=== PATIENT | female | born 1995 ===

== ENCOUNTER 2016-11-30 21:53 | Emergency (ER) | payer OTHER ==
[2016-11-30 22:12] VITALS: TEMP 98.8; O2SAT 99
--- NOTE | 2016-11-30 22:47 | ED PDOC ---
Arrival/HPI - General Chief Complaint: Back Pain Time Seen by Provider: 11/30/16 22:03 Historian: Patient - History of Present Illness Narrative History of Present Illness (Text): 11/30/16 22:43 Javid Schmitz is a 21 year old female who presents to the emergency department complaining of lower back pain for past few hours. Patient notes that she almost passed out while bending down to product picker something off the floor. Reports that pain is worsened with movement. Patient had a recent appendectomy a month ago at [facility] [place] without any complications. Denies any fever, chills, headache, dizziness, chest pain, shortness of breath, nausea, vomiting, diarrhea, or any other complaints at this time. Time/Duration: 4-6 hours Symptom Onset: Gradual Symptom Course: Worsening Severity Level: Mild Activities at Onset: Light Past Medical History - Provider Review Nursing Documentation Reviewed: Yes - Hematological/Oncological Hx Sickle Cell Disease: Yes (SICKLE CELL TRAIT) - Psychiatric Hx Anxiety: Yes Hx Depression: Yes Hx Post Traumatic Stress Disorder: Yes Hx Substance Use: No - Surgical History Hx Appendectomy: Yes - Anesthesia Hx Anesthesia: Yes Hx Anesthesia Reactions: No Hx Malignant Hyperthermia: No Family/Social History - Physician Review Nursing Documentation Reviewed: Yes Family/Social History: No Known Family HX Smoking Status: Never Smoked Hx Alcohol Use: No Hx Substance Use: No Allergies/Home Meds Allergies/Adverse Reactions: Allergies No Known Allergies Allergy (Verified 11/30/16 22:12) Review of Systems - Physician Review All systems were reviewed & negative as marked: Yes - Review of Systems Constitutional: Normal. absent: Fatigue, Fevers Eyes: Normal. absent: Vision Changes Respiratory: Normal. absent: SOB, Cough, Sputum Cardiovascular: Normal. absent: Chest Pain, Palpitations Gastrointestinal: Normal. absent: Abdominal Pain, Diarrhea, Nausea, Vomiting Genitourinary Female: Normal. absent: Dysuria, Frequency, Hematuria Musculoskeletal: Back Pain. absent: Neck Pain Skin: Normal Psychiatric: Normal Physical Exam Vital Signs Reviewed: Yes Vital Signs Temp Pulse Resp BP Pulse Ox 12/01/16 02:20 75 17 117/65 99 12/01/16 01:09 80 18 104/66 99 11/30/16 21:54 98.8 F 81 18 107/71 99 Temperature: Afebrile Blood Pressure: Normal Pulse: Regular Respiratory Rate: Normal Appearance: Positive for: Well-Appearing, Non-Toxic, Comfortable Pain Distress: None Mental Status: Positive for: Alert and Oriented X 3 - Systems Exam Head: Present: Atraumatic, Normocephalic Pupils: Present: PERRL Extroacular Muscles: Present: EOMI Conjunctiva: Present: Normal Respiratory/Chest: Present: Clear to Auscultation, Good Air Exchange. No: Respiratory Distress, Accessory Muscle Use Cardiovascular: Present: Regular Rate and Rhythm, Normal S1, S2. No: Murmurs Abdomen: Present: Normal Bowel Sounds. No: Tenderness, Distention, Peritoneal Signs, Rebound, Guarding Back: Present: Pain with Leg Raise (bilateral). No: CVA Tenderness, Midline Tenderness, Paraspinal Tenderness Upper Extremity: Present: Normal Inspection. No: Cyanosis, Edema Lower Extremity: Present: Normal Inspection. No: Edema Neurological: Present: GCS=15, CN II-XII Intact, Speech Normal, Motor Func Grossly Intact, Normal Sensory Function Skin: Present: Warm, Dry, Normal Color. No: Rashes Psychiatric: Present: Alert, Oriented x 3, Normal Insight, Normal Concentration Medical Decision Making ED Course and Treatment: 11/30/16 22:49 Impression: A 21 year old female who presents to the emergency department complaining of back pain for past few hours. Plan: -- CT abdomen/pelvis -- EKG -- Labs -- Drug Screen -- Toradol -- HCG -- Urine Culture -- Urinalysis -- Reassess and disposition Progress Notes: EKG reviewed by me: NSR @ 74 bpm. Normal [place]. Normal interval. CT abdomen pelvis results reviewed: IMPRESSION: No CT evidence of urolithiasis. Possible RIGHT ovarian cyst. Suggest ultrasound. 12/01/16 02:41 On re-evaluation, patient feels better and is in no acute distress. I have discussed the results and plan with the patient, who expresses understanding. Patient in agreement with plan to be discharged home. Patient is stable for discharge. Patient was instructed to follow up with physician or return if symptoms worsen or new concerning symptoms arise. Re-evaluation Time: 02:27 Reassessment Condition: Re-examined, Improved - Lab Interpretations Lab Results: 11/30/16 22:35 11/30/16 22:35 Lab Results 11/30/16 22:35: Urine Color Light yellow, Urine Appearance Sl cloudy, Urine pH 6.0, Ur Specific [place] 1.020, Urine Protein Negative, Urine Glucose (UA) Negative, Urine Ketones Negative, Urine Blood Moderate H, Urine Nitrate Negative , Urine Bilirubin Negative, Urine Urobilinogen 1.0 H, Ur Leukocyte Esterase Small H, Urine RBC 5 - 10, Urine WBC 5 - 10, Ur Epithelial Cells 0 - 2, Urine Bacteria Few, Urine HCG, Qual Negative 11/30/16 22:35: Urine Opiates Screen Negative, Urine Methadone Screen Negative, Ur Barbiturates Screen Negative, Ur Phencyclidine Scrn Negative, Ur Amphetamines Screen Negative, U Benzodiazepines Scrn Negative, U Oth Cocaine Metabols Negative, U Cannabinoids Screen Negative 11/30/16 22:35: Sodium 136, Potassium 4.4, Chloride 103, Carbon Dioxide 28, Anion Gap 9 L, BUN 13, Creatinine 0.8, Est GFR ( Amer) > 60, Est GFR (Non -Af Amer) > 60, Random Glucose 88, Calcium 8.9, Total Bilirubin 0.5, AST 36, ALT 43, Alkaline Phosphatase 59, Troponin I < 0.01, Total Protein 7.6, Albumin 3.9, Globulin 3.7, Albumin/Globulin Ratio 1.1 11/30/16 22:35: WBC 6.6, RBC 4.25, Hgb 12.4, Hct 33.8 L, MCV 79.5 L, MCH 29.2, MCHC 36.7, RDW 14.1, Plt Count 323, MPV 9.3, Gran % 56.9, Lymph % (Auto) 30.5, [place] % (Auto) 10.5 H, Eos % (Auto) 1.8, Baso % (Auto) 0.3, Gran # 3.76, Lymph # 2.0, [place] # 0.7 H, Eos # 0.1, Baso # 0.02 I have reviewed the lab results: Yes - RAD Interpretation Narrative RAD Interpretations (Text): 12/01/16 02:40 EXAM: CT Abdomen and Pelvis Without Intravenous Contrast FINDINGS: Lower thorax: Minimal atelectasis/scarring. ABDOMEN: Liver: Unremarkable. Gallbladder and bile ducts: No calcified stones. No ductal dilation. Pancreas: Unremarkable. No ductal dilation. Spleen: No splenomegaly. Adrenals: No mass. Kidneys and ureters: No renal calculi. No hydronephrosis. Stomach and bowel: No definite mural thickening. No obstruction. Appendix: Appendectomy. PELVIS: Bladder: Unremarkable. No stones. Reproductive: Apparent 2.6 x 2.1 x 2.7 cm hypodense lesion within RIGHT adnexal region. ABDOMEN and PELVIS: Bones/joints: No acute fracture. Soft tissues: Mild soft tissue thickening along umbilicus. Vasculature: Unremarkable. No abdominal aortic aneurysm. Lymph nodes: No pathologically enlarged lymph nodes. IMPRESSION: 1. No CT evidence of urolithiasis. 2. Possible RIGHT ovarian cyst. Suggest ultrasound. 3. Incidental/non-acute findings are described above. Radiology Orders: 11/30/16 23:47 ABD & PELVIS W/O PO OR IV CONT [CT] Stat Seafood Packer: Radiologist - EKG Interpretation Interpreted by ED Physician: Yes Type: 12 lead EKG - Medication Orders Current Medication Orders: Discontinued Medications Ketorolac Tromethamine (Toradol) 30 mg IVP ONCE ONE Stop: 11/30/16 22:53 Last Admin: 11/30/16 23:31 Dose: 30 mg - Scribe Statement The provider has reviewed the documentation as recorded by the Sade Lindquist Provider Attestation: Provider Scribe Attestation: All medical record entries made by the Sade were at my direction and personally dictated by me. I have reviewed the chart and agree that the record accurately reflects my personal performance of the history, physical exam, medical decision making, and the department course for this patient. I have also personally directed, reviewed, and agree with the discharge instructions and disposition. Disposition/Present on Arrival - Present on Arrival Any Indicators Present on Arrival: No History of DVT/PE: No History of Uncontrolled Diabetes: No Urinary Catheter: No History of Decub. Ulcer: No History Surgical Site Infection Following: None - Disposition Have Diagnosis and Disposition been Completed?: Yes Diagnosis: Back pain Disposition: HOME/ ROUTINE Disposition Time: 02:27 Condition: GOOD Discharge Instructions (ExitCare): Acute Low Back Pain (ED) Prescriptions: Cyclobenzaprine [Cyclobenzaprine HCl] 10 mg PO TID #21 tab Naproxen [Naprosyn Tab] 375 mg PO BID #12 tab
[2016-11-30 23:34] LABS: ADD MANUAL DIFF? NO
[2016-11-30 23:38] LABS: BASO # 0.02 K/mm3 (0.0-2.0); BASO % 0.3 % (0.0-3.0); EOS # 0.1 (0.0-0.7); EOS % 1.8 % (1.5-5.0); GRAN # 3.76 (1.4-6.5); GRAN % 56.9 % (50.0-68.0); HEMATOCRIT 33.8 % (36.0-48.0); LYMPH % 30.5 % (22.0-35.0); MEAN CELL VOLUME 79.5 fL (80.0-105.0); MEAN CORPUSCULAR HEMOGLOBIN 29.2 pg (25.0-35.0); MEAN CORPUSCULAR HGB CONC 36.7 g/dl (31.0-37.0); MEAN PLATELET VOLUME 9.3 fl (7.0-11.0); MONO # 0.7 (0.1-0.6); MONO % 10.5 % (1.0-6.0); PLATELET COUNT 323 10^3/uL (120.0-450.0); RED CELL DISTRIBUTION WIDTH 14.1 % (11.5-14.5); URINE BILIRUBIN NEGATIVE (NEGATIVE); URINE BLOOD MODERATE (NEGATIVE); URINE GLUCOSE (UA) NEGATIVE (NEGATIVE); URINE KETONE NEGATIVE (NEGATIVE); URINE LEUKOCYTE ESTERASE SMALL Leu/uL (NEGATIVE); URINE PROTEIN NEGATIVE mg/dL (<30 mg/dL); WHITE BLOOD COUNT 6.6 10^3/ul (4.5-11.0)
[2016-11-30 23:43] LABS: URINE APPEARANCE SL CLOUDY (CLEAR); URINE COLOR LIGHT YELLOW (YELLOW)
[2016-11-30 23:51] LABS: ALB/GLOB RATIO 1.1 (1.1-1.8); ALKALINE PHOSPHATASE 59 U/L (38-133); ALT/SGPT 43 U/L (7-56); AST/SGOT 36 U/L (15-39); BILIRUBIN,TOTAL 0.5 mg/dL (0.2-1.3); BLOOD UREA NITROGEN 13 mg/dL (7-21); CALCIUM 8.9 mg/dL (8.4-10.5); CARBON DIOXIDE 28 mmol/L (21-33); CHLORIDE 103 mmol/L (98-107); GFR AFRICAN-AMERICAN > 60; GLUCOSE,RANDOM 88 mg/dL (70-110); POTASSIUM 4.4 mmol/L (3.6-5.0); SODIUM 136 mmol/L (132-148); TOTAL PROTEIN 7.6 g/dL (5.8-8.3)
[2016-11-30 23:53] LABS: URINE EPITHELIAL CELLS 0 - 2 /hpf (0-5)
[2016-11-30 23:54] LABS: URINE BACTERIA FEW (NEG)
[2016-12-01 00:15] LABS: TROPONIN I < 0.01 ng/mL
--- NOTE | 2016-12-01 01:45 | CT ---
EXAM: CT Abdomen and Pelvis Without Intravenous Contrast CLINICAL HISTORY: 21 years old, female; Pain; Abdominal pain; Flank; Right; Additional info: Rt flank pain TECHNIQUE: Axial computed tomography images of the abdomen and pelvis without intravenous contrast. This CT exam was performed using one or more of the following dose reduction techniques: automated exposure control, adjustment of the mA and/or kV according to patient size, and/or use of iterative reconstruction technique. Coronal and sagittal reformatted images were created and reviewed. COMPARISON: No relevant prior studies available. FINDINGS: Lower thorax: Minimal atelectasis/scarring. ABDOMEN: Liver: Unremarkable. Gallbladder and bile ducts: No calcified stones. No ductal dilation. Pancreas: Unremarkable. No ductal dilation. Spleen: No splenomegaly. Adrenals: No mass. Kidneys and ureters: No renal calculi. No hydronephrosis. Stomach and bowel: No definite mural thickening. No obstruction. Appendix: Appendectomy. PELVIS: Bladder: Unremarkable. No stones. Reproductive: Apparent 2.6 x 2.1 x 2.7 cm hypodense lesion within RIGHT adnexal region. ABDOMEN and PELVIS: Intraperitoneal space: No significant fluid collection. No free air. Bones/joints: No acute fracture. Soft tissues: Mild soft tissue thickening along umbilicus. Vasculature: Unremarkable. No abdominal aortic aneurysm. Lymph nodes: No pathologically enlarged lymph nodes. IMPRESSION: 1. No CT evidence of urolithiasis. 2. Possible RIGHT ovarian cyst. Suggest ultrasound. 3. Incidental/non-acute findings are described above.
[2016-12-01 02:37] VITALS: BP 117/65; PULSE 75; RESP 17
--- NOTE | 2016-12-02 01:44 | CARD ---
APPROVED REPORT EKG Measurement Heart [id number] <Conclusion> Normal sinus rhythm Normal ECG
== END 2016-12-01 02:40 | disposition home or self-care (01) ==
LOC: ED 21:53 → MERGE 21:53 → ED 12-01 02:40
DX: M54.5 Low back pain (principal)
CPT/HCPCS: 74176; 80053; 80324; 80345; 80346; 80349; 80353; 80358; 80361; 81001; 83992; 84484; 84703; 85025; 87086; 93005; 96374; 99283; J1885

== ENCOUNTER 2017-02-15 21:19 | Emergency (ER) | payer OTHER ==
--- NOTE | 2017-02-15 22:52 | ED PDOC ---
Arrival/HPI - General Time Seen by Provider: 02/15/17 22:42 Historian: Patient - History of Present Illness Narrative History of Present Illness (Text): 02/15/17 22:49 Javid Schmitz is a 21 year old female, with a history of appendectomy, presents to the emergency department complaining of lower abdominal pain for past week. Denies any nausea, vomiting or diarrhea. States last menstrual period was a week prior. Denies any vaginal discharge.Mild dysuria. Denies any other complaints at this time. Time/Duration: Other (1 week ) Symptom Onset: Gradual Severity Level: Mild Context: Home Past Medical History - Provider Review Nursing Documentation Reviewed: Yes - Hematological/Oncological Hx Sickle Cell Disease: Yes (SICKLE CELL TRAIT) - Psychiatric Hx Anxiety: Yes Hx Depression: Yes Hx Post Traumatic Stress Disorder: Yes Hx Substance Use: No - Surgical History Hx Appendectomy: Yes - Anesthesia Hx Anesthesia: Yes Hx Anesthesia Reactions: No Hx Malignant Hyperthermia: No Family/Social History - Physician Review Nursing Documentation Reviewed: Yes Family/Social History: No Known Family HX Smoking Status: Never Smoked Hx Alcohol Use: No Hx Substance Use: No Allergies/Home Meds Allergies/Adverse Reactions: Allergies No Known Allergies Allergy (Verified 11/30/16 22:12) Review of Systems - Physician Review All systems were reviewed & negative as marked: Yes - Review of Systems Constitutional: Normal Respiratory: Normal. absent: SOB, Cough, Sputum Cardiovascular: Normal. absent: Chest Pain, Palpitations Gastrointestinal: Abdominal Pain (lower). absent: Diarrhea, Nausea, Vomiting Genitourinary Female: Normal, Dysuria Neurological: Normal. absent: Headache Physical Exam Vital Signs Reviewed: Yes Vital Signs Temp Pulse Resp BP Pulse Ox 02/15/17 22:10 99.0 F 88 14 106/67 98 Temperature: Afebrile Blood Pressure: Normal Pulse: Regular Respiratory Rate: Normal Appearance: Positive for: Well-Appearing, Non-Toxic, Comfortable Pain Distress: None Mental Status: Positive for: Alert and Oriented X 3 - Systems Exam Head: Present: Atraumatic, Normocephalic Pupils: Present: PERRL Conjunctiva: Present: Normal Mouth: Present: Moist Mucous Membranes Respiratory/Chest: Present: Clear to Auscultation, Good Air Exchange. No: Respiratory Distress, Accessory Muscle Use Cardiovascular: Present: Regular Rate and Rhythm, Normal S1, S2. No: Murmurs Abdomen: Present: Tenderness (Mild suprapubic tenderness ), Normal Bowel Sounds. No: Distention, Peritoneal Signs, Rebound, Guarding Upper Extremity: Present: Normal Inspection. No: Cyanosis, Edema Lower Extremity: Present: Normal Inspection. No: Edema Neurological: Present: GCS=15, CN II-XII Intact, Speech Normal, Motor Func Grossly Intact, Normal Sensory Function Skin: Present: Warm, Dry, Normal Color. No: Rashes Psychiatric: Present: Alert, Oriented x 3, Normal Insight, Normal Concentration Medical Decision Making ED Course and Treatment: 02/15/17 22:53 Impression: A 21 year old female who presents to the emergency department complaining of lower abdominal pain. Plan: -- Labs -- IV fluids -- HCG -- Urinalysis - Reassess and disposition Progress Notes: 02/16/17 01:10 Patient is in no acute distress. Will discharge home on antibiotics for cystitis. Advised to present to emergency department for new/worsening symptoms and follow up with PMD within few day. Patient is aware and agrees with the plan. - Lab Interpretations Lab Results: 02/15/17 23:43 02/15/17 23:43 Lab Results 02/16/17 00:01: Urine Color Yellow, Urine Appearance Clear, Urine pH 6.0, Ur Specific [place] 1.025, Urine Protein Negative, Urine Glucose (UA) Negative, Urine Ketones Negative, Urine Blood Large H, Urine Nitrate Negative, Urine Bilirubin Negative, Urine Urobilinogen 0.2, Ur Leukocyte Esterase Negative, Urine RBC 2 - 5, Urine WBC 2 - 5, Ur Epithelial Cells 3 - 4, Urine Bacteria Mod , Urine HCG, Qual Negative 02/15/17 23:43: WBC 8.3 D, RBC 4.46, Hgb 12.8, Hct 35.4 L, MCV 79.4 L, MCH 28.7 , MCHC 36.2, RDW 13.6, Plt Count 326, MPV 9.5 02/15/17 23:43: Sodium 136, Potassium 4.1, Chloride 102, Carbon Dioxide 23, Anion Gap 15, BUN 19, Creatinine 0.8, Est GFR ( Amer) > 60, Est GFR (Non- Af Amer) > 60, Random Glucose 87, Calcium 9.1, Total Bilirubin 0.4, AST 22, ALT 27, Alkaline Phosphatase 63, Total Protein 7.2, Albumin 3.9, Globulin 3.3, Albumin/Globulin Ratio 1.2, Lipase 46 - Medication Orders Current Medication Orders: Cephalexin Monohydrate (Keflex) 500 mg PO ONCE STA PRN Reason: Protocol Stop: 02/16/17 01:09 Sodium Chloride (Sodium Chloride 0.9%) 1,000 mls @ 100 mls/hr IV .Q10H STEVE Last Admin: 02/15/17 23:01 Dose: 100 mls/hr Ibuprofen (Motrin Tab) 600 mg PO STAT STA Stop: 02/16/17 01:09 - Scribe Statement The provider has reviewed the documentation as recorded by the Sade Lindquist Provider Attestation: All medical record entries made by the Conradibstephanie were at my direction and personally dictated by me. I have reviewed the chart and agree that the record accurately reflects my personal performance of the history, physical exam, medical decision making, and the department course for this patient. I have also personally directed, reviewed, and agree with the discharge instructions and disposition. Disposition/Present on Arrival - Present on Arrival Any Indicators Present on Arrival: No History of DVT/PE: No History of Uncontrolled Diabetes: No Urinary Catheter: No History Surgical Site Infection Following: None - Disposition Have Diagnosis and Disposition been Completed?: Yes Diagnosis: Cystitis Disposition: HOME/ ROUTINE Disposition Time: 01:06 Patient Plan: Discharge Patient Problems: Current Active Problems Problem Status Onset Cystitis Acute Condition: STABLE Discharge Instructions (ExitCare): Urinary Tract Infection in Women (ED) Additional Instructions: Drink plenty of liquids/take meds as prescribed/follow up with your doctor this week Prescriptions: Cephalexin [cephalexin] 500 mg PO BID #10 cap Naproxen [Naprosyn Tab] 375 mg PO BID PRN #12 tab PRN Reason: Pain, Moderate (4-7) Referrals: Mike Louise MD [Primary Care Provider] - Follow up with primary
[2017-02-15] MEDS ORDERED: Sodium Chloride 0.9% 1,000 ML IV SCH (23:00)
[2017-02-15 23:30] VITALS: TEMP 99; O2SAT 98
[2017-02-15 23:54] VITALS: BMI 33.4
[2017-02-16 00:16] LABS: HEMOGLOBIN 12.8 g/dL (12.0-16.0); MEAN CELL VOLUME 79.4 fl (80.0-105.0); MEAN CORPUSCULAR HEMOGLOBIN 28.7 pg (25.0-35.0); MEAN CORPUSCULAR HGB CONC 36.2 g/dl (31.0-37.0); MEAN PLATELET VOLUME 9.5 fl (7.0-11.0); RBC 4.46 10^6/uL (3.5-6.1); RED CELL DISTRIBUTION WIDTH 13.6 % (11.5-14.5); WHITE BLOOD COUNT 8.3 10^3/ul (4.5-11.0)
[2017-02-16 00:17] LABS: URINE BILIRUBIN NEGATIVE (NEGATIVE); URINE BLOOD LARGE (NEGATIVE); URINE GLUCOSE (UA) NEGATIVE (NEGATIVE); URINE LEUKOCYTE ESTERASE NEGATIVE Leu/uL (NEGATIVE); URINE NITRATE NEGATIVE (NEGATIVE); URINE PROTEIN NEGATIVE mg/dL (<30 mg/dL); URINE UROBILINOGEN 0.2 E.U./dL (<1 E.U./dL)
[2017-02-16 00:19] LABS: URINE APPEARANCE CLEAR (CLEAR); URINE COLOR YELLOW (YELLOW)
[2017-02-16 00:21] LABS: ALB/GLOB RATIO 1.2 (1.1-1.8); ALBUMIN 3.9 g/dL (3.0-4.8); ALT/SGPT 27 U/L (7-56); AST/SGOT 22 U/L (15-39); BLOOD UREA NITROGEN 19 mg/dL (7-21); CALCIUM 9.1 mg/dL (8.4-10.5); GFR AFRICAN-AMERICAN > 60; GFR NON-AFRICAN AMERICAN > 60; LIPASE 46 U/L (23-300)
[2017-02-16 00:23] LABS: HCG,QUALITATIVE URINE NEGATIVE (NEGATIVE)
[2017-02-16 00:31] LABS: URINE BACTERIA MOD (NEG)
[2017-02-16 01:44] VITALS: BP 119/59; PULSE 79; RESP 16
== END 2017-02-16 01:27 | disposition home or self-care (01) ==
LOC: ED 21:19
DX: N30.90 Cystitis, unspecified without hematuria (principal)
CPT/HCPCS: 80053; 81001; 83690; 84703; 85027; 99283; J7040